=== PATIENT | female | born 1970 ===

== ENCOUNTER 2019-02-28 09:42 | Emergency (ER) ==
[~2019-02-28] VITALS: Ht 165.1 cm; Wt 61.2 kg
== END 2019-02-28 11:42 | disposition home or self-care (01) ==
LOC: ED 09:42
DX: F32.9 Major depressive disorder, single episode, unspecified (principal); E11.9 Type 2 diabetes mellitus without complications; F17.200 Nicotine dependence, unspecified, uncomplicated; Z86.73 Personal history of transient ischemic attack (TIA), and cerebral infarction without residual deficits
CPT/HCPCS: 80053; 80176; 84703; 85025; 99284; G0480